=== PATIENT | male | born 1980 | race Caucasian/White ===

== ENCOUNTER 2018-11-23 21:50 | Emergency (ER) | payer OTHER, SELFPAY ==
[~2018-11-23] VITALS: Ht 175.3 cm; Wt 88.4 kg
[2018-11-23 21:58] VITALS: BP 144/95
[2018-11-23] MEDS ORDERED: HYDROcodone/APAP 5/325 TABLET PO ONE (23:00)
[2018-11-23] MEDS ORDERED: HYDROcodone/APAP 5/325 TABLET ONE (23:04)
== END 2018-11-23 23:12 | disposition home or self-care (01) ==
LOC: ED 22:41
DX: K02.9 Dental caries, unspecified (principal)
CPT/HCPCS: 99283